=== PATIENT | male | born 1960 | race African-American/Black ===

== ENCOUNTER 2021-12-06 06:58 | Emergency (ER) | payer OTHER ==
[~2021-12-06] VITALS: Ht 175.3 cm; Wt 88.5 kg
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
--- NOTE | 2021-12-06 07:07 | NUR ---
[employer] AT PT'S BEDSIDE
--- NOTE | 2021-12-06 07:44 | NUR ---
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
--- NOTE | 2021-12-06 07:55 | NUR ---
SEEN BY DR. FISHER
[2021-12-06] MEDS ORDERED: TDAP [DIPH/PERTUSSIS/TET] 0.5 ML VIAL IM ONE (07:59)
[2021-12-06] MEDS: TDAP [DIPH/PERTUSSIS/TET] 0.5 ML VIAL IM ONE (08:12)
[2021-12-06] MEDS ORDERED: KETOROLAC TROMETHAMINE INJ 30 MG/ML VIAL ONE (08:14)
--- NOTE | 2021-12-06 08:15 | NUR ---
Tdap/ boodtrit (edmund was given tolorated procedure
[2021-12-06] MEDS: KETOROLAC TROMETHAMINE INJ 30 MG/ML VIAL IM ONE (08:20)
--- NOTE | 2021-12-06 08:24 | NUR ---
porovider at ded side for suture lauceration on lt side on face
--- NOTE | 2021-12-06 08:50 | NUR ---
d/c instraction given to pt fully and verblized understood d/c home with fallow up care no pain
--- NOTE | 2021-12-06 08:53 | NUR ---
c/o red spot around lt eye DR. gibson notefy eye examine done us on lt eye done
[2021-12-06 09:03] VITALS: BP 146/77
== END 2021-12-06 09:18 | disposition home or self-care (01) ==
LOC: ER 06:59
DX: S01.412A Laceration without foreign body of left cheek and temporomandibular area, initial encounter (principal); Y04.8XXA Assault by other bodily force, initial encounter; Y93.89 Activity, other specified; Y92.89 Other specified places as the place of occurrence of the external cause; Y99.8 Other external cause status
CPT/HCPCS: 12011; 90471; 90715; 96372; 99284; J1885